=== PATIENT | male | born 1990 | race Caucasian/White ===

== ENCOUNTER 2017-05-12 16:15 | Emergency (ER) | payer MEDICAID ==
[~2017-05-12] VITALS: Ht 177.8 cm; Wt 72.6 kg
[2017-05-12 16:28] VITALS: BP 109/57
--- NOTE | 2017-05-12 16:48 | NUR ---
ASSUMED PATIENT CARE, CONCUR WITH TRIAGE. ER MD AT BEDSIDE, MSE COMPLETED.
[2017-05-12 17:17] VITALS: BP 119/60
--- NOTE | 2017-05-12 17:18 | NUR ---
DISPO AND MEDICAL DECISION MAKING, DC HOME WITH INSTRUCTIONS AND PRESCRIPTIONS, UNDERSTOOD BY PATIENT WELL. WILL FOLLOW UP WITH PSYCH MD.
== END 2017-05-12 17:18 | disposition home or self-care (01) ==
LOC: MED 16:15
DX: Z76.0 Encounter for issue of repeat prescription (principal); F32.9 Major depressive disorder, single episode, unspecified
CPT/HCPCS: 99283

== ENCOUNTER 2017-06-26 | Inpatient (IN) | payer MEDICAID ==
[~2017-06-26] VITALS: Ht 177.8 cm; Wt 75.5 kg
[2017-06-26 00:05] VITALS: BP 109/63
--- NOTE | 2017-06-26 00:09 | NUR ---
PT AMBULATED TO ER CHAIR D
--- NOTE | 2017-06-26 00:10 | NUR ---
PATIENT PRESENTS TO ED WITH C/O SUICIDAL THOUGHTS X 2 DAYS AGO. MED HX SCHIZOPHRENIA, BIPOLAR MANIC DISORDER, ANXIETY, DEPRESSION,SUBSTANCE ABUSE, PTSD PT DENIES N/V/D; SKIN IS PINK/WARM/DRY; AAOX4 WITH EVEN AND STEADY GAIT; LUNGS CLEAR BL; HR EVEN AND REGULAR; PT DENIES ANY FEVER, CP, SOB, OR COUGH AT THIS TIME; PATIENT STATES PAIN OF 0/10 AT THIS TIME; VSS; PATIENT POSITIONED FOR COMFORT; HOB ELEVATED; BEDRAILS UP X2; BED DOWN. ER MD MADE AWARE OF PT STATUS.
--- NOTE | 2017-06-26 00:11 | NUR ---
[place] [employer] CALLED TO REQUEST AN OFFICER FOR PT'S PSHYCH EVALUATION. PER DISPATCHER BAY AN OFFICER WILL BE SEND. CHARGE NURSE NOTIFIED.
--- NOTE | 2017-06-26 00:32 | NUR ---
LABS BEING DRAWN AT BEDSIDE
--- NOTE | 2017-06-26 00:38 | NUR ---
URINE SAMPLE COLLECTED, LAB NOTIFIED FOR PICK-UP
[2017-06-26 00:40] LABS: BASOPHILS % (AUTO) 0.4 % (0.0-2.0); EOSINOPHILS % (AUTO) 0.8 % (0.0-4.0); HEMATOCRIT 41.6 % (36-52); HEMOGLOBIN 13.6 g/dL (12.0-18.0); LYMPHOCYTES # (AUTO) 1.7 K/uL (2.0-11.5); LYMPHOCYTES % (AUTO) 35.1 % (20.5-51.1); MEAN CORPUSCULAR HEMOGLOBIN 30 pg (27-31); MEAN CORPUSCULAR HGB CONC 33 g/dL (33-37); MEAN CORPUSCULAR VOLUME 92.6 fL (80-94); MONOCYTES # (AUTO) 0.3 K/uL (0.8-1.0); MONOCYTES % (AUTO) 6.3 % (1.7-9.3); NEUTROPHILS # (AUTO) 2.8 K/uL (1.8-7.7); NEUTROPHILS % (AUTO) 57.4 % (42.2-75.2); PLATELET COUNT (AUTO) 245 K/uL (140-450); RED BLOOD CELL COUNT(AUTO) 4.49 MIL/uL (4.20-6.10); RED CELL DISTRIBUTION WIDTH 14.4 % (11.6-13.7); WHITE BLOOD COUNT (AUTO) 4.8 K/uL (4.8-10.8)
--- NOTE | 2017-06-26 00:43 | NUR ---
[employer] HERE TALKING WITH PT. PT STATES HE IS HEARING VOICES THAT SAY HE IS A COWARD AND THE VOICES WONT STOP. PT STATES HE HAS TAKEN 1 OR 2 MANY PILLS EITHER HIS MORNING DOSE OR PM DOSE. PT ON [facility].
[2017-06-26] MEDS ORDERED: BUPR-160 PO (00:49)
[2017-06-26] MEDS ORDERED: TRAZ-286 PO (00:49)
[2017-06-26 00:51] LABS: APPEARANCE,URINE CLEAR (CLEAR); BILIRUBIN,URINE NEGATIVE (NEGATIVE); BLOOD, URINE NEGATIVE (NEGATIVE); COLOR,URINE YELLOW (YELLOW); LEUKOCYTE ESTERASE ,URINE NEGATIVE (NEGATIVE); NITRITE, URINE NEGATIVE (NEGATIVE); PH,URINE 7.5 (5.0-9.0); UGLUCOSE NEGATIVE (NEGATIVE)
[2017-06-26 00:54] LABS: ALBUMIN 4.2 g/dL (3.4-5.0); ANION GAP 11.2 (8-16); ASPARTATE AMINOTRANSFERASE 33 U/L (15-37); CARBON DIOXIDE 28.8 mmol/L (21-32); CHLORIDE 106 mmol/L (98-107); CREATININE 1.1 mg/dL (0.7-1.3); GFR ARICAN-AMERICAN 105 mL/min (>90); GLUCOSE 97 mg/dL (74-106); SODIUM SERUM 142 mmol/L (136-145); TOTAL BILIRUBIN 0.9 mg/dL (0.0-1.0); UREA NITROGEN, BLOOD 24 mg/dL (7-18)
[2017-06-26 00:55] LABS: ACETAMINOPHEN < 0.5 ug/ml (10-30); SALICYLATE < 2.8 mg/dL (2.8-20.0)
--- NOTE | 2017-06-26 01:08 | NUR ---
[employer] PRIYANKA TALKED WITH PT. PT TOLD OFFICER PRIYANKA THAT HE WANTED TO HURT HIMSELF BY SWALLOWING BROKEN GLASS DOWN HIS THROAT. HE ALSO STATED THAT THE VOICES WERE TELLING CHALLENGING HIM TO COMMIT SUICIDE.
--- NOTE | 2017-06-26 01:10 | NUR ---
PT'S PERSONAL BELONGINGS TAKEN AND GIVEN TO SECURITY. PT PLACED IN HOSPITAL GOWN. RN AND EMT WATCHING PT.
--- NOTE | 2017-06-26 02:09 | NUR ---
PT AMBULATED TO BED 4
--- NOTE | 2017-06-26 02:27 | NUR ---
PT SLEEPING IN BED. NO ACUTE THREAT NOTED AT THIS TIME.
--- NOTE | 2017-06-26 02:29 | NUR ---
DR CUI STATES PT IS MEDICALLY CLEARED TO BE PLACED FOR 5150.
--- NOTE | 2017-06-26 03:23 | NUR ---
[facility] received request for assistance with placement. Placement packets have been sent to the following facilities, [facility], [facility], [facility], [facility], [facility], and [facility].
--- NOTE | 2017-06-26 03:30 | NUR ---
Patient appears to be resting comfortably in bed. Vital Signs within normal limits. Respirations even and unlabored.
[2017-06-26 04:07] LABS: BARBITURATE, URINE NEG. ng/ml (NEG <=200); BENZODIAZEPINE, URINE NEG. ng/mL (NEG <=200); CANNABINOID, URINE NEG. ng/mL (NEG <=50); COCAINE, URINE NEG. ng/mL (NEG <=300); OPIATE, URINE NEG. ng/mL (NEG <=2000); PHENCYCLIDINE SCREEN,URINE NEG. ng/mL (NEG <=25)
--- NOTE | 2017-06-26 04:30 | NUR ---
Patient appears to be resting comfortably in bed. Respirations even and unlabored.
--- NOTE | 2017-06-26 05:30 | NUR ---
Patient appears to be resting comfortably in bed. Respirations even and unlabored.
--- NOTE | 2017-06-26 06:10 | NUR ---
Patient appears to be resting comfortably in bed. Vital Signs within normal limits. Respirations even and unlabored.
--- NOTE | 2017-06-26 07:30 | NUR ---
REPORT RECEIVED FROM KENROY LEYVA. PT SLEEPING ON [facility]RET AT THIS TIME. PT NEEDS MET. WILL CONTINUE TO MONITOR.
--- NOTE | 2017-06-26 08:30 | NUR ---
patient resting with eyes closed in gurney. rr are even and unlabored. no acute distress noted. suicidial precuations in place. sitter by bedside. will continue to monitor.
--- NOTE | 2017-06-26 10:00 | NUR ---
PT SLEEPING PEACEFULLY IN [facility]. PT NEEDS MET AT THIS TIME. WILL CONTINUE TO MONITOR.
--- NOTE | 2017-06-26 11:00 | NUR ---
patient awake and alert. laying in gurney with hob elevated. no acute distress noted. suicidial precautions in place. sitter by bedside. will continue to monitor.
[2017-06-26] MEDS ORDERED: NACL 0.9% 1,000 ML IV SCH (11:33)
[2017-06-26] MEDS ORDERED: DOCUSATE SODIUM 100 MG GELCAP PO PRN (11:35)
[2017-06-26] MEDS ORDERED: ACETAMINOPHEN 325 MG TAB PO PRN (11:35)
[2017-06-26] MEDS ORDERED: HYDROcodone/APAP 7.5/325 MG 1 TAB PO PRN (11:35)
[2017-06-26] MEDS ORDERED: ONDANSETRON 4 MG/2 ML VIAL IM/IVP PRN (11:35)
--- NOTE | 2017-06-26 12:00 | NUR ---
patient awake and alert. patient eating lunch by bedside. no acute distress noted. suicidial precautions in place. sitter by bedside. will continue to monitor.
--- NOTE | 2017-06-26 13:00 | NUR ---
patient awake and alert. vss. no acute distress noted. suicidial precautions in place. sitter by bedside. will continue to monitor.
[2017-06-26 13:21] LABS: FREE T4 (FREE THYROXINE) 0.86 ng/dL (0.76-1.46); MAGNESIUM 1.7 mg/dL (1.8-2.4); PHOSPHORUS 3.9 mg/dL (2.5-4.9); THYROID STIMULATING HORMONE 0.73 uIU/mL (0.34-3.74)
[2017-06-26 13:30] VITALS: BP 113/60
--- NOTE | 2017-06-26 13:30 | NUR ---
RECEIVED PT ON UNIT. PT IS AAOX4, AMBULATORY, PT HAS IV ON THE LEFT AC, PATENT, INTACT, FLUSHING WELL, NO S/S OF RESPIRATORY DISTRESS OR DISCOMFORT NOTED, ORIENTED PT TO ROOM, DISCUSSED PLAN OF CARE WITH PT, PT VERBALIZED UNDERSTANDING, SAFETY/FALL/SUICIDE PRECAUTIONS ARE IN PLACE, 1:1 SITTER IS AT BEDSIDE. WILL CONTINUE TO MONITOR.
--- NOTE | 2017-06-26 13:30 | NUR ---
Patient will be admitted to care of [facility]. Admited to Medical Surgical. Will go to room 109B. Belongings list completed. Bedside report to Leatha JASMINE.
--- NOTE | 2017-06-26 14:40 | NUR ---
DR. GORE HERE TO EVALUATE PT FOR PSYCH CONSULT.
[2017-06-26] MEDS ORDERED: MAGNESIUM OXIDE 400 MG TAB PO SCH (15:30)
--- NOTE | 2017-06-26 16:40 | NUR ---
DISCHARGE INSTRUCTIONS GIVEN, IV REMOVED, CATHETER TIP INTACT, ID WRIST BAND REMOVED. PT STABLE UPON DISCHARGE.
[2017-06-27 08:13] LABS: T4 (THYROXINE) 5.9 ug/dL (4.5-12.0)
== END 2017-06-26 16:45 | disposition home or self-care (01) | DRG 469 ==
LOC: MED → MTU 11:37
PROVIDERS: ADMIT Family Medicine Sports Medicine; ATTEND Family Medicine Sports Medicine
DX: N17.0 Acute kidney failure with tubular necrosis (principal); R45.851 Suicidal ideations; F20.9 Schizophrenia, unspecified; E83.42 Hypomagnesemia; F31.9 Bipolar disorder, unspecified; Z79.899 Other long term (current) drug therapy
CPT/HCPCS: 36415; 80053; 80305; 81003; 82150; 83036; 83690; 83735; 83880; 84100; 84436; 84439; 84443; 84479; 85025; 85610; 85730; 87081; 99285; G0480; G0482

== ENCOUNTER 2017-08-14 22:39 | Emergency (ER) | payer MEDICAID ==
[~2017-08-14] VITALS: Ht 175.3 cm; Wt 75.7 kg
[~2017-08-14 22:39] MED LIST: BUPR-160 PO; TRAZ-286 PO
[2017-08-14 22:50] VITALS: BP 126/60
--- NOTE | 2017-08-14 22:59 | NUR ---
Evaluated pt for suicidal ideation. Pt is voluntary so he does not meet criteria for 5150. Pt states he would "probably do it by taking an overdose". Pt states he has had "a couple" prior attempts with pills and swallowing glass. Pt denies taking any kind of drug or alcohol and takes Welbutrin for depression, which he states he just resumed taking. Pt thought patterns are slightly scattered.
--- NOTE | 2017-08-14 23:00 | NUR ---
PATIENT AMBULATED TO ER BED 7.
--- NOTE | 2017-08-14 23:05 | NUR ---
PATIENT IS A 27 Y/O MALE WHO PRESENTS TO THE ED C/O SUICIDAL IDEATION. PT STATES THAT HE IS GOING TO THROUGH MANY STRESSFUL EVENTS IN LIFE, PT IS UNWILLING TO DISCLOSE SPECIFIC DETAILS. PT WISHED TO GO THE STORE AND OVERDOSE ON DRUGS. PT DENIES PAIN AT THIS TIME. PT DENIES CP, SOB, N/V/D. PT AAOX4, RR EVEN/UNLABORED. PT REPOSITIONED FOR COMFORT, BED IN LOWEST POSITION. ER MD DR. IBANEZ NOTIFIED. WILL CONTINUE TO MONITOR.
--- NOTE | 2017-08-14 23:15 | NUR ---
PATIENT UNABLE TO PROVIDE URINE AT THIS TIME. OFFERED WATER.
[2017-08-14] MEDS ORDERED: buPROPion 75 MG TAB PO ONE (23:20)
--- NOTE | 2017-08-15 | NUR ---
PER DR. IBANEZ, PT GIVEN REFERRAL FOR [facility].
[2017-08-15 00:30] VITALS: BP 117/63
--- NOTE | 2017-08-15 00:30 | NUR ---
Patient discharged with v/s stable. Written and verbal after care instructions given and explained. Patient alert, oriented and verbalized understanding of instructions. Ambulatory with steady gait. All questions addressed prior to discharge. ID band removed. Patient advised to follow up with PMD. Rx of Welbutrin SR given. Patient educated on indication of medication including possible reaction and side effects. Opportunity to ask questions provided and answered. Pt instructed to go straight to [facility]. Pt stated he would.
== END 2017-08-15 00:30 | disposition home or self-care (01) ==
LOC: MED 22:39
DX: F32.9 Major depressive disorder, single episode, unspecified (principal); Z79.899 Other long term (current) drug therapy
CPT/HCPCS: 99283

== ENCOUNTER 2017-09-06 02:04 | Inpatient (IN) | payer MEDICAID ==
[~2017-09-06] VITALS: Ht 177.8 cm; Wt 72.6 kg
[2017-09-06 02:15] VITALS: BP 128/73
--- NOTE | 2017-09-06 02:20 | NUR ---
PATIENT AMBULATED TO ER BED 9.
--- NOTE | 2017-09-06 02:25 | NUR ---
PATIENT IS A 27 Y/O MALE WHO PRESENTS TO THE ED C/O SUICIDAL IDEATION. PT STATES THAT HE WANTED TO TAKE DIFFERENT KINDS OF PILLS. PT SPOKE WITH THERAPIST EARLIER THIS WEEK. PT DENIES PAIN AT THIS TIME. PT DENIES CP, SOB, N/V/D. PT AAOX4, RR EVEN/UNLABORED, AMBULATED WITH STEADY GAIT. ER MD DR. TANG NOTIFIED. WILL CONTINUE TO MONITOR.
--- NOTE | 2017-09-06 02:26 | NUR ---
[employer] CALLED FOR 5150 EVALUATION, SPOKE WITH CARISA, WILL SEND OUT AN OFFICER FOR JASON
--- NOTE | 2017-09-06 02:27 | NUR ---
SUICIDE PRECAUTIONS INITIATED.
--- NOTE | 2017-09-06 02:30 | NUR ---
PATIENT UNABLE TO URINATE AT THIS TIME. PATIENT GIVEN WATER AND URINAL BEDSIDE.
--- NOTE | 2017-09-06 02:30 | NUR ---
PATIENT RESTING AT THIS TIME. NO SIGNS OF DISTRESS.
--- NOTE | 2017-09-06 02:35 | NUR ---
REPORT GIVEN TO MIKO JASMINE.
[2017-09-06 02:45] LABS: ANION GAP 13.4 (8-16); CARBON DIOXIDE 27.4 mmol/L (21-32); CHLORIDE 107 mmol/L (98-107); CREATININE 1.1 mg/dL (0.7-1.3); GFR ARICAN-AMERICAN 105 mL/min (>90); GLUCOSE 120 mg/dL (74-106); POTASSIUM 3.8 mmol/L (3.5-5.1); SODIUM SERUM 144 mmol/L (136-145); UREA NITROGEN, BLOOD 22 mg/dL (7-18)
[2017-09-06 02:52] LABS: ALBUMIN 4.2 g/dL (3.4-5.0); ASPARTATE AMINOTRANSFERASE 24 U/L (15-37); TOTAL BILIRUBIN 0.9 mg/dL (0.0-1.0)
[2017-09-06 02:53] LABS: ACETAMINOPHEN < 0.5 ug/ml (10-30); SALICYLATE < 2.8 mg/dL (2.8-20.0)
--- NOTE | 2017-09-06 03:02 | NUR ---
pt was not abhle to urinate at this time Addendum: 09/06/17 at 0316 by NASEEM pt was not able to urinate at this time
--- NOTE | 2017-09-06 03:21 | NUR ---
pt unable to urinate, pt refused water
[2017-09-06 03:22] LABS: BASOPHILS % (AUTO) 0.3 % (0.0-2.0); EOSINOPHILS % (AUTO) 0.5 % (0.0-4.0); HEMATOCRIT 41.3 % (36-52); HEMOGLOBIN 14.1 g/dL (12.0-18.0); LYMPHOCYTES # (AUTO) 1.9 K/uL (2.0-11.5); LYMPHOCYTES % (AUTO) 32.4 % (20.5-51.1); MEAN CORPUSCULAR HEMOGLOBIN 31 pg (27-31); MEAN CORPUSCULAR HGB CONC 34 g/dL (33-37); MEAN CORPUSCULAR VOLUME 90.3 fL (80-94); MONOCYTES # (AUTO) 0.4 K/uL (0.8-1.0); MONOCYTES % (AUTO) 6.1 % (1.7-9.3); NEUTROPHILS # (AUTO) 3.5 K/uL (1.8-7.7); NEUTROPHILS % (AUTO) 60.7 % (42.2-75.2); PLATELET COUNT (AUTO) 230 K/uL (140-450); RED BLOOD CELL COUNT(AUTO) 4.58 MIL/uL (4.20-6.10); RED CELL DISTRIBUTION WIDTH 13.5 % (11.6-13.7); WHITE BLOOD COUNT (AUTO) 5.8 K/uL (4.8-10.8)
--- NOTE | 2017-09-06 04:27 | NUR ---
called for [place] on [address] no one available at this time, stated, once available will send out
[2017-09-06 04:30] LABS: APPEARANCE,URINE CLEAR (CLEAR); BILIRUBIN,URINE NEGATIVE (NEGATIVE); BLOOD, URINE NEGATIVE (NEGATIVE); COLOR,URINE YELLOW (YELLOW); LEUKOCYTE ESTERASE ,URINE NEGATIVE (NEGATIVE); NITRITE, URINE NEGATIVE (NEGATIVE); PH,URINE 7.5 (5.0-9.0); UGLUCOSE NEGATIVE (NEGATIVE)
[2017-09-06 04:32] LABS: BARBITURATE, URINE NEG. ng/ml (NEG <=200); BENZODIAZEPINE, URINE NEG. ng/mL (NEG <=200); CANNABINOID, URINE NEG. ng/mL (NEG <=50); COCAINE, URINE NEG. ng/mL (NEG <=300); OPIATE, URINE NEG. ng/mL (NEG <=2000); PHENCYCLIDINE SCREEN,URINE NEG. ng/mL (NEG <=25)
--- NOTE | 2017-09-06 04:52 | NUR ---
[employer] IS AT PT BEDSIDE
--- NOTE | 2017-09-06 04:56 | NUR ---
pt resting in bed
--- NOTE | 2017-09-06 05:00 | NUR ---
behavioral health precautions/ observation record initiated
--- NOTE | 2017-09-06 05:27 | NUR ---
PT RESTING COMFORTABLE IN BED
--- NOTE | 2017-09-06 05:27 | NUR ---
PT MOVED FROM BED 12 TO BED 5
--- NOTE | 2017-09-06 05:49 | NUR ---
patient is awake but quite lying in bed. vitals stable.
--- NOTE | 2017-09-06 06:26 | NUR ---
pt stated that he feels like he want to hit himself in the face. was able to talk to him, calm him down. pt stated he no longer feels like hitting himself.
--- NOTE | 2017-09-06 06:42 | NUR ---
No available beds at this time at these [facility] facilities. Faxed packet to [facility], [facility], [facility], [place], and [facility]. Will follow up today for bed availability.
--- NOTE | 2017-09-06 07:00 | NUR ---
pt is resting in bed. vitals are stable. a/o x4
--- NOTE | 2017-09-06 07:12 | NUR ---
gave report to isai JASMINE, pt resting comfortably and vitals are stable.
--- NOTE | 2017-09-06 08:21 | NUR ---
Pt just finish eating breakfast. Patient appears to be sitting up resting comfortably in bed. Vital Signs within normal limits. Respirations even and unlabored.
--- NOTE | 2017-09-06 08:21 | NUR ---
Trena askew in [facility] - 09/06/17 at 1206 by MEDSHARRON PT TALKING TO TELEPSYCH DOCTOR MAGGIE.
--- NOTE | 2017-09-06 08:40 | NUR ---
PT IS ON TELEPSYCH TALKING FACE TO FACEWITH
--- NOTE | 2017-09-06 08:41 | NUR ---
PT TALKING TO TELEPSYCH DOCTOR MAGGIE.
--- NOTE | 2017-09-06 09:10 | NUR ---
PT IS DONE TALKING FACE TO FACE WITH DR THROUGH TELEPSYCH.
[2017-09-06] MEDS ORDERED: ONDANSETRON 4 MG/2 ML VIAL IM/IVP PRN (10:30)
[2017-09-06] MEDS ORDERED: HYDROcodone/APAP 5/325 MG 1 TAB TAB PO PRN (10:30)
[2017-09-06] MEDS ORDERED: ZOLPIDEM 5 MG TAB PO PRN (10:30)
[2017-09-06] MEDS ORDERED: ACETAMINOPHEN 325 MG TAB PO PRN (10:30)
[2017-09-06] MEDS ORDERED: LORazepam 2 MG/ML VIAL IM/IVP PRN (10:30)
--- NOTE | 2017-09-06 10:58 | NUR ---
PT SLEEPIN IN BED, BREATHING EVEN AND UNLABORED, VSS
--- NOTE | 2017-09-06 11:08 | NUR ---
PLACEMENT PACKET HAS BEEN SENT TO [facility] FOR REVIEW. NO BEDS CURRENTLY AVAILABLE AT THIS TIME.
--- NOTE | 2017-09-06 12:03 | NUR ---
PT SLEEPING IN BED COMFORTABLY
--- NOTE | 2017-09-06 12:15 | NUR ---
PT IS AWARE LUNCH IS AT BEDSIDE, PT IS STILL SLEEPING IN BED.
--- NOTE | 2017-09-06 13:07 | NUR ---
PT SITTING UP RIGHT IN BED EATING LUNCH
[2017-09-06 13:25] LABS: MAGNESIUM 1.7 mg/dL (1.8-2.4); PHOSPHORUS 3.5 mg/dL (2.5-4.9); THYROID STIMULATING HORMONE 1.08 uIU/mL (0.34-3.74)
[2017-09-06] MEDS ORDERED: MAGNESIUM OXIDE 400 MG TAB PO SCH (13:53)
--- NOTE | 2017-09-06 13:58 | NUR ---
LAB AT PT BEDSIDE
--- NOTE | 2017-09-06 14:00 | NUR ---
Dr. Hightower evaluating patient at bedside.
[2017-09-06] MEDS ORDERED: LORazepam 1 MG TAB PO PRN (14:25)
[2017-09-06] MEDS ORDERED: ARIPiprazole 10 MG TAB PO SCH (14:31)
[2017-09-06 14:35] LABS: PROTHROMBIN TIME 11.3 secs (10.8-13.4)
--- NOTE | 2017-09-06 15:10 | NUR ---
PT ARRIVED FROM ER IN WHEELCHAIR, REPORT RECIVED FROM RN, PT AWAKE ALERT, AMBULATES FROM HALLWAY TO BED WITH STEADY GAIT, RESP EVEN UNLABORED, SKIN WARM DRY COLOR WNL, PLAN OF CARE REVIEWED, PT ORIENTED TO ROOM AND FLOOR. PT COOPERATIVE, QUIET WITH FLAT AFFECT, DOES NOT ANSWER SOME QUESTIONS, Addendum: 09/06/17 at 1824 by Estephania Landon RN PT ON 3730 SUICIDAL PRECAUTION, 1;1 SITTER AT BEDSIDE.
--- NOTE | 2017-09-06 15:29 | NUR ---
PT SITTING UP IN BED TALKING TO SITTER
--- NOTE | 2017-09-06 15:51 | NUR ---
PT USING PHONE TO CALL MOTHER
--- NOTE | 2017-09-06 16:02 | NUR ---
Patient will be admitted to care of DR. TRUJILLO. Admited to MS FLOOR. Will go to room 110-B. Belongings list completed. Report to KENROY LARA.
--- NOTE | 2017-09-06 16:09 | NUR ---
RT AT BEDSIDE FOR EKG, PT'S HR 46-48 SINUSBRADYCARDIA, BP STABLE, PT DENEIS CHEST PAIN, NO SOB, DR TREJO AWARE, NO CHANGES IN ORDERS.
[2017-09-06 17:01] VITALS: BP 111/63
--- NOTE | 2017-09-06 18:22 | NUR ---
PT STANDING UP IN ROOM WALKING AROUND, QUIET CALM, REMAINS ON 1:1 WATCH, WILL CONTINUE TO MONITOR
[2017-09-06] MEDS ORDERED: MAGNESIUM OXIDE 400 MG TAB ONE (18:39)
--- NOTE | 2017-09-06 19:16 | NUR ---
REPORT GIVEN TO SPRAY MACHINE TENDER NURSE, PT IN STABLE CONDITION.
--- NOTE | 2017-09-06 19:17 | NUR ---
PATIENT REPORT RECEIVED FROM MORNING NURSE AT BEDSIDE. PATIENT IS AWAKE, ALERT AND ORIENTED. NO SIGNS AND SYMPTOMS OF DISTRESS NOTED. NO C/O PAIN AT THIS TIME. NO IV SITE NOTED. PLAN OF CARE DISCUSSED WITH PATIENT. PATIENT VERBALIZED UNDERSTANDING. 1:1 SITTER PRESENT. WILL CONTINUE TO MONITOR.
[2017-09-06] MEDS: buPROPion 150 MG TABER PO SCH (19:26)
--- NOTE | 2017-09-06 20:00 | NUR ---
MEDICATION EDUCATION GIVEN. PATIENT VERBALIZED UNDERSTANDING. MEDICATION ADMINISTERED ORDERED. WILL CONTINUE TO MONITOR Addendum: 09/06/17 at 2205 by Stephen Marroquin RN 1:1 VIRIDIANA REN
[2017-09-06] MEDS ORDERED: traZODone 50 MG TAB PO SCH (21:00)
--- NOTE | 2017-09-06 22:47 | NUR ---
CHECKED ON PATIENT. PATIENT IS ASLEEP. NO SIGNS AND SYMPTOMS OF DISTRESS NOTED. BREATHING EVEN AND UNLABORED. WILL CONTINUE TO MONITOR
--- NOTE | 2017-09-06 22:47 | NUR ---
1:1 SITTER PRESENT AT BEDSIDE
--- NOTE | 2017-09-06 22:51 | NUR ---
PATIENT REPORT GIVEN TO KENROY GO AT BEDSIDE. PATIENT IS IN STABLE CONDITION. 1:1 SITTER PRESENT
--- NOTE | 2017-09-06 23:43 | NUR ---
There still no vacancy at any of the designated facilities at this time , will continue to call for placement and notify floor nurse if placement is found.
[2017-09-07] VITALS: BP 110/62
--- NOTE | 2017-09-07 04:42 | NUR ---
PT SLEEPING . NO SOB NO S/S OF DISTRESS. WILL CONTINUE TO MONITOR.
[2017-09-07] MEDS: buPROPion 150 MG TABER PO SCH ×2 (06:49→17:05)
[2017-09-07 06:57] LABS: BASOPHILS % (AUTO) 0.3 % (0.0-2.0); EOSINOPHILS % (AUTO) 0.8 % (0.0-4.0); HEMATOCRIT 41.1 % (36-52); HEMOGLOBIN 14.1 g/dL (12.0-18.0); LYMPHOCYTES % (AUTO) 43.9 % (20.5-51.1); MEAN CORPUSCULAR HEMOGLOBIN 31 pg (27-31); MEAN CORPUSCULAR HGB CONC 34 g/dL (33-37); MEAN CORPUSCULAR VOLUME 90.6 fL (80-94); MONOCYTES # (AUTO) 0.3 K/uL (0.8-1.0); MONOCYTES % (AUTO) 7.5 % (1.7-9.3); NEUTROPHILS # (AUTO) 2.2 K/uL (1.8-7.7); NEUTROPHILS % (AUTO) 47.5 % (42.2-75.2); PLATELET COUNT (AUTO) 210 K/uL (140-450); RED BLOOD CELL COUNT(AUTO) 4.54 MIL/uL (4.20-6.10); RED CELL DISTRIBUTION WIDTH 13.5 % (11.6-13.7); WHITE BLOOD COUNT (AUTO) 4.6 K/uL (4.8-10.8)
--- NOTE | 2017-09-07 07:10 | NUR ---
ENDORSED REPORT TO DAYSHIFT NURSE AT BEDSIDE FOR CONTINUITY OF CARE.
[2017-09-07 08:00] VITALS: BP 104/55
[2017-09-07 08:05] LABS: ANION GAP 6.9 (8-16); CARBON DIOXIDE 31.6 mmol/L (21-32); CREATININE 1.1 mg/dL (0.7-1.3); POTASSIUM 4.5 mmol/L (3.5-5.1)
[2017-09-07] MEDS ORDERED: ARIPiprazole 10 MG TAB PO SCH (09:00)
--- NOTE | 2017-09-07 10:17 | NUR ---
PATIENT HAS BEEN SCREENED AND CATEGORIZED LOW NUTRITION RISK. PATIENT WILL BE SEEN WITHIN 7 DAYS OF ADMISSION. 09/12/[address]
--- NOTE | 2017-09-07 10:20 | NUR ---
EXPLAINED PT. ABOUT IMPORTANCE OF IV ACCESS FOR MAGNESIUM SULFATE ADMINISTRATION. PT. VERBALIZED UNDERSTANDING. BUT REFUSED IV INSERTION. INFORMED DR. TREJO THAT PT. DON'T HAVE IV ACCESS AND REFUSED IV INSERTION. ALSO INFORMED CHARGE NURSE DARRICK SERNA.
[2017-09-07] MEDS ORDERED: MAG SULF 2000 MG/WATER PREMIX 50 ML IV SCH (11:00)
--- NOTE | 2017-09-07 11:21 | NUR ---
FAXED INITIAL REVIEW TO [facility] SPOKE WITH VIVIANE, REVIEWS JUST GO TO [facility] [phone] PHONE [phone] VIVIANE
[2017-09-07] MEDS ORDERED: MAGNESIUM OXIDE 400 MG TAB PO SCH (11:30)
[2017-09-07 12:00] VITALS: BP 105/51
--- NOTE | 2017-09-07 14:37 | NUR ---
SLEEPING WELL. NO DISCOMFORT NOTICED. CONTINUE TO MONITOR 1:1.
--- NOTE | 2017-09-07 16:43 | NUR ---
DR. HILL CAME FOR PSYCH CONSULT AND SPOKE TO PT. AT BEDSIDE. PT. CALM AND COOPERATIVE DURING CONVERSATION.
--- NOTE | 2017-09-07 17:30 | NUR ---
INFORMED DR. TREJO THAT PT. WAS CLEARED BY DR. HILL. ALSO INFORMED CHARGE NURSE DARRICK SERNA.
--- NOTE | 2017-09-07 18:25 | NUR ---
INFORMED DR. GONGORA THAT PT. WANTED TO GO AMA. AND ALSO INFORMED DR. GONGORA THAT PT. WAS CLEARED BY DR. HILL.
--- NOTE | 2017-09-07 18:32 | NUR ---
DR. GONGORA CAME AND SPOKE TO PT. AT BEDSIDE REGARDING AMA.
[2017-09-07] MEDS ORDERED: ABI10 PO (18:43)
[2017-09-08 06:18] LABS: T4 (THYROXINE) 7.4 ug/dL (4.5-12.0)
== END 2017-09-07 18:45 | disposition left against medical advice (07) | DRG 425 ==
LOC: MED 02:04 → MTU 10:27 → UNDOADMIN 10:27 → MTU 17:08
PROVIDERS: ADMIT Family Medicine; ATTEND Family Medicine
DX: E83.42 Hypomagnesemia (principal); F33.3 Major depressive disorder, recurrent, severe with psychotic symptoms; R45.851 Suicidal ideations; F41.9 Anxiety disorder, unspecified; Z79.899 Other long term (current) drug therapy; Z91.14 Patient's other noncompliance with medication regimen; Z71.51 Drug abuse counseling and surveillance of drug abuser; Z53.21 Procedure and treatment not carried out due to patient leaving prior to being seen by health care provider; Z87.891 Personal history of nicotine dependence; F19.10 Other psychoactive substance abuse, uncomplicated
CPT/HCPCS: 36415; 71045; 80048; 80053; 80305; 81003; 83036; 83735; 84100; 84436; 84443; 84479; 85025; 85610; 85730; 87081; 93005; 99285; G0480; G0482

== ENCOUNTER 2020-05-19 19:04 | Emergency (ER) | payer MEDICAID, OTHER ==
[~2020-05-19] VITALS: Ht 170.2 cm; Wt 79.4 kg
[~2020-05-19 19:04] MED LIST changes: +ABI10 PO; -TRAZ-286 PO; +TRAZ-343 PO
[2020-05-19 19:15] VITALS: BP 132/76
[2020-05-19 19:46] LABS: BASOPHILS # (AUTO) 0.1 K/uL (0.00-0.22); BASOPHILS % (AUTO) 1.7 % (0.0-2.0); EOSINOPHILS # (AUTO) 0.1 K/uL (0-0.4); EOSINOPHILS % (AUTO) 1.5 % (0.0-4.0); HEMATOCRIT 39.5 % (36-52); LYMPHOCYTES # (AUTO) 1.4 K/uL (2.0-11.5); LYMPHOCYTES % (AUTO) 33.4 % (20.5-51.1); MEAN CORPUSCULAR HEMOGLOBIN 30 pg (27-31); MEAN CORPUSCULAR HGB CONC 33 g/dL (33-37); MEAN CORPUSCULAR VOLUME 91.6 fL (80-94); MONOCYTES # (AUTO) 0.4 K/uL (0.8-1.0); NEUTROPHILS # (AUTO) 2.2 K/uL (1.8-7.7); NEUTROPHILS % (AUTO) 53.4 % (42.2-75.2); PLATELET COUNT (AUTO) 301 K/uL (140-450); RED BLOOD CELL COUNT(AUTO) 4.31 MIL/uL (4.20-6.10); RED CELL DISTRIBUTION WIDTH 16.5 % (11.6-13.7); WHITE BLOOD COUNT (AUTO) 4.2 K/uL (4.8-10.8)
[2020-05-19 19:54] LABS: APPEARANCE,URINE CLEAR (CLEAR); BILIRUBIN,URINE NEGATIVE (NEGATIVE); BLOOD, URINE NEGATIVE (NEGATIVE); COLOR,URINE YELLOW (YELLOW); LEUKOCYTE ESTERASE ,URINE NEGATIVE (NEGATIVE); NITRITE, URINE NEGATIVE (NEGATIVE); UGLUCOSE NEGATIVE (NEGATIVE)
[2020-05-19 20:02] LABS: ALBUMIN 4.2 g/dL (3.4-5.0); ANION GAP 11.6 (8-16); ASPARTATE AMINOTRANSFERASE 55 U/L (15-37); CARBON DIOXIDE 30.4 mmol/L (21-32); CHLORIDE 103 mmol/L (98-107); GFR ARICAN-AMERICAN 114 mL/min (>90); GLUCOSE 80 mg/dL (74-106); SODIUM SERUM 141 mmol/L (136-145); TOTAL BILIRUBIN 1.3 mg/dL (0.0-1.0); UREA NITROGEN, BLOOD 27 mg/dL (7-18)
[2020-05-19 20:06] LABS: ACETAMINOPHEN < 0.5 ug/ml (10-30); SALICYLATE < 2.8 mg/dL (2.8-20.0)
[2020-05-19 20:46] LABS: BARBITURATE, URINE NEGATIVE ng/ml (NEG <=200); BENZODIAZEPINE, URINE NEGATIVE ng/mL (NEG <=200); CANNABINOID, URINE NEGATIVE ng/mL (NEG <=50); COCAINE, URINE NEGATIVE ng/mL (NEG <=300); OPIATE, URINE NEGATIVE ng/mL (NEG <=2000); PHENCYCLIDINE SCREEN,URINE NEGATIVE ng/mL (NEG <=25)
[2020-05-20 03:20] LABS: ALBUMIN 3.9 g/dL (3.4-5.0); ANION GAP 9.9 (8-16); POTASSIUM 3.9 mmol/L (3.5-5.1); TOTAL BILIRUBIN 1.3 mg/dL (0.0-1.0)
[2020-05-20 06:24] VITALS: BP 114/77
== END 2020-05-20 06:42 ==
LOC: MED 19:04
DX: R45.851 Suicidal ideations (principal); Z20.822 Contact with and (suspected) exposure to COVID-19
CPT/HCPCS: 36415; 80053; 80305; 81003; 85025; 87426; 93005; 99285; G0480; G0482; U0003